=== PATIENT | male | born 1985 | race African-American/Black ===

== ENCOUNTER 2020-08-14 11:08 | Emergency (ER) | payer OTHER ==
[~2020-08-14] VITALS: Ht 188 cm; Wt 104.5 kg
[~2020-08-14 11:08] MED LIST: HYOS0.1264 PO; METR500T PO; ONDA4TAB7 PO
[2020-08-14 11:10] VITALS: BP 165/72
--- NOTE | 2020-08-14 11:59 | ED.ADGEN ---
Past Medical History Past Medical History: Other Additional Past Medical Histor: VERTIGO Past Surgical History: Other Additional Past Surgical Histo: right knee Smoking Status: Current Every Day Smoker Alcohol Use: Occasionally Drug Use: None General Adult EDM: Chief Complaint: DIZZY/LIGHT HEADED HPI: HPI: Patient is a 35-year-old female who arrives ambulatory to the emergency department complaining of dizziness since Tuesday this week. Patient reports since Tuesday this week he has been experiencing dizziness with motion of any kind. He states he notices this when he rises from a seated position and ambulates. Patient states he feels as if he is on a ride and he cannot get off of it. The patient reports this is happened 1 time previously however it did not last this long. The patient denies any chest pain or sensation as if you might pass out. He further denies any history of upper respiratory infection, cough or cold. Additionally he denies any history of head trauma or fever. He further denies any history of any sensory or motor change to his daily life. He is awake, alert and nontoxic-appearing Review of Systems: Review of Systems: Constitutional: Denies fever or chills. [] Eyes: Denies change in visual acuity. [] HENT: Denies nasal congestion or sore throat. [] Respiratory: Denies cough or shortness of breath. [] Cardiovascular: Denies chest pain or edema. [] GI: Denies abdominal pain, nausea, vomiting, bloody stools or diarrhea. [] : Denies dysuria. [] Musculoskeletal: Denies back pain or joint pain. [] Integument: Denies rash. [] Neurologic: Reports dizziness. Denies headache, focal weakness or sensory changes. [] Endocrine: Denies polyuria or polydipsia. [] Lymphatic: Denies swollen glands. [] Psychiatric: Denies depression or anxiety. [] Family History: Family History: Noncontributory Current Medications: None Allergies: Allergies: Allergies Coded Allergies Type Severity Reaction Last Updated Verified Penicillins Allergy Unknown 07/16/18 Yes Physical Exam: PE: Constitutional: Well developed, well nourished, no acute distress, non-toxic appearance. [] HENT: Normocephalic, atraumatic, bilateral external ears normal, oropharynx moist, no oral exudates, nose normal. [] Eyes: PERRLA, EOMI, conjunctiva normal, no discharge. [] Neck: Normal range of motion, no tenderness, supple, no stridor. [] Cardiovascular:Heart rate regular rhythm, no murmur [] Lungs & Thorax: Bilateral breath sounds clear to auscultation [] Abdomen: Bowel sounds normal, soft, no tenderness, no masses, no pulsatile masses. [] Skin: Warm, dry, no erythema, no rash. [] Back: No tenderness, no CVA tenderness. [] Extremities: No tenderness, no cyanosis, no clubbing, ROM intact, no edema. [] Neurologic: Alert and oriented X 3, normal motor function, normal sensory function, no focal deficits noted. [] Psychologic: Affect normal, judgement normal, mood normal. [] Current Patient Data: Vital Signs: Vital Signs Date Time Temp Pulse Resp B/P (MAP) Pulse Ox O2 Delivery O2 Flow Rate FiO2 08/14/20 11:10 98.4 82 16 165/72 (103) 97 Room Air 98.4 EKG: EKG: [] Heart Score: Risk Factors: Risk Factors: DM, Current or recent (<one month) smoker, HTN, HLP, family history of CAD, obesity. Risk Scores: Score 0 - 3: 2.5% MACE over next 6 weeks - Discharge Home Score 4 - 6: 20.3% MACE over next 6 weeks - Admit for Clinical Observation Score 7 - 10: 72.7% MACE over next 6 weeks - Early Invasive Strategies Radiology/Procedures: Radiology/Procedures: [] Impression: [facility] [address] [place], [place] [id number] IMAGING REPORT Signed PATIENT: ERI AMAYA ACCOUNT: [id number] : 1985 LOCATION: ER AGE: 35 SEX: M EXAM STATUS: REG ER ORD. PHYSICIAN: ALEJANDRA MUKHERJEE DO REASON: dizzy PROCEDURE: CT HEAD WO CONTRAST PQRS Compliance Statement: One or more of the following individualized dose reduction techniques were utilized for this examination: 1. Automated exposure control 2. Adjustment of the mA and/or kV according to patient size 3. Use of iterative reconstruction technique CT head without contrast 08/14/2020 11:59 AM INDICATION: Dizzy COMPARISON: None available TECHNIQUE: Multiple axial CT images of the head were obtained from skull base through the vertex without intravenous contrast. FINDINGS: Head: Ventricles, sulci and basal cisterns are within normal limits. There is no hydrocephalus. Pedersen-white matter differentiation is normal. There is no acute intracranial hemorrhage. There is no mass, mass effect or midline shift. Posterior fossa is normal in appearance. Visualized portions of the orbits are normal. Paranasal sinuses are well aerated. There is jacek bullosa on the left with mild deviation of the nasal septum to the right. Mastoid air cells are well aerated. Scalp and calvaria are normal. There is an ossific fragment along the medial aspect of the left C1 arch adrienne suring 1.2 x 0.8 cm which is of indeterminate etiology. There is mild mass effect on the left lateral thecal sac at this level without definite cord compression. Further characterization with CT of the cervical spine would be of benefit. IMPRESSION: No acute intracranial hemorrhage. There is an ossific fragment along the medial aspect of the left C1 arch measuring 1.2 x 0.8 cm which is of indeterminate etiology. There is mild mass effect on the left lateral thecal sac at this level without definite cord compression. Further characterization with CT of the cervical spine would be of benefit. Electronically signed by: Ciera Duggan MD (08/14/2020 12:33 PM) [id number] Course & Med Decision Making: Course & Med Decision Making Pertinent Labs and Imaging studies reviewed. (See chart for details) [] Ifeanyi Disclaimer: Dragcarito Disclaimer: This electronic medical record was generated, in whole or in part, using a voice recognition dictation system. Departure Departure Impression: Primary Impression: Dizziness of unknown cause Disposition: 01 DC HOME SELF CARE/HOMELESS Condition: GOOD Referrals: NO PCP (PCP) Patient Instructions: Dizziness Additional Instructions: I have asked the patient to utilize the meclizine in order to address his dizziness as a first-line medication. Should that not alleviate his symptoms have advised him to use the diazepam. The patient is otherwise been advised to follow-up with his primary care physician for ENT referral with any ongoing dizziness. Should the patient develop any neurological issue such as sensory or motor deficits, I advised him to return to the emergency department. The patient understands and has agreed to do so. I have also advised the patient against operating any heavy machinery or motor vehicles should he have continued dizziness. He is to operate this only after resolution of his symptoms. Incidentally there was an osseous abnormality at the C1 spinal segment that was identified on CT. I did inquire about a potential injury to the patient's neck and he denied 1. I informed him that should he experience any change in his upper extremities or neurologically otherwise that he should evaluate this emergently. The patient understands and has agreed to do so. He remains neurologically intact and states he is not dizzy at rest. He is stable for discharge. Scripts Diazepam (DIAZEPAM) 5 Mg Tablet 5 MG PO TID for 5 Days, #15 TAB Prov: ALEJANDRA MUKHERJEE DO 08/14/20 Meclizine Hcl (MECLIZINE HCL) 25 Mg Tablet 1 TAB PO TID for dizziness for 5 Days, #15 TAB Prov: ALEJANDRA MUKHERJEE DO 08/14/20 ALEJANDRA MUKHERJEE DO Aug 14, 2020 11:59
--- NOTE | 2020-08-14 12:35 | RAD ---
PQRS Compliance Statement: One or more of the following individualized dose reduction techniques were utilized for this examinat ion: 1. Automated exposure control 2. Adjustment of the mA and/or kV according to patient size 3. Use of iterative reconstruction technique CT head without contrast 08/14/2020 11:59 AM INDICATION: Dizzy COMPARISON: None available TECHNIQUE: Multiple axial CT images of the head were obtained from skull base through the vertex with out intravenous contrast. FINDINGS: Head: Ventricles, sulci and basal cisterns are within normal limits. There is no hydrocephalus. Pedersen-white matter differentiation is normal. There is no acute intracranial hemorrhage. There is no mass, mass e ffect or midline shift. Posterior fossa is normal in appearance. Visualized portions of the orbits are normal. Paranasal sinuses are well aerated. There is jacek bul losa on the left with mild deviation of the nasal septum to the right. Mastoid air cells are well aer ated. Scalp and calvaria are normal. There is an ossific fragment along the medial aspect of the left C1 arch measuring 1.2 x 0.8 cm which is of indeterminate etiology. There is mild mass effect on the left lateral thecal sac at this level without definite cord compression. Further characterization with CT of the cervical spine would be o f benefit. IMPRESSION: No acute intracranial hemorrhage. There is an ossific fragment along the medial aspect of the left C1 arch measuring 1.2 x 0.8 cm which is of indeterminate etiology. There is mild mass effect on the left lateral thecal sac at this level without definite cord compression. Further characterization with CT of the cervical spine would be o f benefit. Electronically signed by: Ciera Duggan MD (08/14/2020 12:33 PM) [id number]
[2020-08-14] MEDS ORDERED: MECL-75 PO ×2 (12:51→13:03)
[2020-08-14] MEDS ORDERED: DIAZ5TAB4 PO ×2 (12:51→13:03)
== END 2020-08-14 13:11 | disposition home or self-care (01) ==
LOC: ER 11:08
DX: R42 Dizziness and giddiness (principal); F17.200 Nicotine dependence, unspecified, uncomplicated; Z88.0 Allergy status to penicillin
CPT/HCPCS: 70450; 99284-25